=== PATIENT | male | born 1950 | race Caucasian/White ===

== ENCOUNTER 2025-02-28 13:43 | Emergency (ER) | payer MEDICAID ==
[~2025-02-28] VITALS: Ht 167.6 cm; Wt 68.0 kg
[~2025-02-28 13:43] MED LIST: AMLO5TAB88 PO; LIP40 PO; PANT40TA51 PO; TOPUD PO
[2025-02-28 13:48] VITALS: O2SAT 98
[2025-02-28 13:50] VITALS: BP 109/55; PULSE 67; RESP 14; TEMP 37; O2SAT 97
== END 2025-02-28 18:25 | disposition left against medical advice (07) ==
LOC: ER 13:43
DX: Z00.8 Encounter for other general examination (principal); Z53.21 Procedure and treatment not carried out due to patient leaving prior to being seen by health care provider